=== PATIENT | female | born 2000 | race African-American/Black ===

== ENCOUNTER 2022-05-14 02:47 | Emergency (ER) | payer MEDICAID ==
[~2022-05-14] VITALS: Ht 165.1 cm; Wt 61.0 kg
[2022-05-14 03:39] VITALS: BP 109/81
[2022-05-14] MEDS ORDERED: CHLO473M2 MT (07:10)
[2022-05-14] MEDS ORDERED: IBUP-2030 MT (07:10)
[2022-05-14] MEDS ORDERED: KETOROLAC 60MG/2ML VIAL IM ONE (07:15)
[2022-05-14] MEDS ORDERED: HYDROCODONE/ACETAMINOPHEN 10/325MG TABLET PO ONE (07:15)
== END 2022-05-14 07:47 | disposition home or self-care (01) ==
LOC: ER 02:55
DX: S01.511A Laceration without foreign body of lip, initial encounter (principal); X58.XXXA Exposure to other specified factors, initial encounter; Y93.89 Activity, other specified; Y92.89 Other specified places as the place of occurrence of the external cause; Y99.8 Other external cause status
CPT/HCPCS: 96372; 99283; J1885